=== PATIENT | female | born 1990 | race Caucasian/White ===

== ENCOUNTER 2023-05-30 21:33 | Observation (INO) | payer BC, SELFPAY ==
--- NOTE | ~2023-05-30 | XR_ITS ---
EXAMINATION: XR chest 1V portable DATE: 05/31/2023 00:26 INDICATION: Mild THC abuse. TECHNIQUE: A single frontal view of the chest was obtained. COMPARISON: None. FINDINGS: A calcified left lung nodule and calcified left hilar lymph nodes are consistent with old g ranulomatous disease. There is no pneumonia, pleural effusion, or pneumothorax. The heart size is nor mal. IMPRESSION: 1. No acute cardiopulmonary disease. Reviewed, dictated and finalized at location A.
[2023-05-30 21:24] VITALS: BP 149/64; PULSE 172; RESP 21; TEMP 37.2; O2SAT 100
[2023-05-30 22:05] VITALS: BP 161/95; PULSE 158; RESP 21; O2SAT 96
[2023-05-30] MEDS: SODIUM CHLORIDE 0.9% IV 1,000 ML 999 ML IV CONT (22:21)
[2023-05-30] MEDS: MIDAZOLAM HCL (*CRX) 2 MG/2 ML VIAL 5 MG IV PUSH (22:21)
[2023-05-30 22:24] LABS: Basophils Absolute Auto 0.1 K/mm3 (0.0-0.1); Basophils Percent Auto 0.5 % (0.2-1.2); Eosinophils Absolute Auto 0.3 K/mm3 (0-0.3); Eosinophils Percent Auto 1.7 % (0-4.4); Hematocrit 34.9 % (37.0-47.0); Hemoglobin 11.7 g/dL (12.0-15.0); Immature Granulocyte Absolute 0.07 K/mm3 (0.00-0.031); Immature Granulocyte Percent A 0.4 % (0-0.5); Lymphocytes Absolute Auto 5.38 K/mm3 (0.9-3.2); Lymphocytes Percent Auto 31.5 % (18.3-44.2); Mean Corpuscular HGB Conc 33.5 g/dl (32-36); Mean Corpuscular Hemoglobin 30.5 pg (26-34); Mean Corpuscular Volume 90.9 fl (80-100); Mean Platelet Volume 9.6 fl (7.4-10.4); Monocytes Absolute Auto 0.8 K/mm3 (0.1-0.6); Monocytes Percent Auto 4.9 % (2.6-8.5); Neutrophils Absolute Auto 10.4 K/mm3 (1.3-6.7); Platelet Count Result 388 k/mm3 (150-375); Red Blood Count 3.84 M/mm3 (4.2-5.4); Red Cell Distribution Width 12.5 % (11.5-14.5); White Blood Count 17.1 K/mm3 (4.5-10.0)
--- NOTE | 2023-05-30 22:38 | ED.GENADULT ---
HPI - General Adult General Chief complaint: Arrhythmia/Palpitations Stated complaint: svt Time Seen by Provider: 05/30/23 22:24 History of Present Illness HPI narrative: This is a 33-year-old female with a history of anxiety THC use presenting for palpitations. Patient says she had a THC edible at 6:30 p.m. At 8:30 pm she said she started feel like heart was racing. She also has significant anxiety. Patient denies chest pain difficulty breathing abdominal pain, dizziness or loss of consciousness. EMS was called and she received 6 and 12 of adenosine en route with no affect. Related Data Allergies Allergy/AdvReac Type Severity Reaction Status Date / Time No Known Allergies Allergy Verified 05/30/23 22:06 Exam Narrative: APPEARANCE: Patient is very anxious appearing Head: atraumatic. EYES: EOMI, NOSE: Atraumatic NECK: Trachea midline RESPIRATORY: No increased rate of breathing, CTAB CARDIOVASCULAR: Tachycardic, no peripheral ABDOMINAL: Non-distended MUSCULOSKELETAl: No obvious deformities NEURO: Alert. Moving 4/4 extremities SKIN:: Warm, dry. Normal color PSYCHIATRIC: anxious Course Vital Signs Vital signs: Vital Signs Temperature 98.9 F 05/30/23 21:24 Pulse Rate 172 H 05/30/23 21:24 Respiratory Rate 21 H 05/30/23 21:24 Blood Pressure 149/64 H 05/30/23 21:24 Pulse Oximetry 100 05/30/23 21:24 Oxygen Delivery Room Air 05/30/23 21:24 Temperature 98.9 F 05/30/23 21:24 Pulse Rate 118 H 05/31/23 02:06 Respiratory Rate 15 05/31/23 02:06 Blood Pressure 116/67 05/31/23 02:06 Pulse Oximetry 96 05/31/23 02:06 Oxygen Delivery Room Air 05/30/23 21:24 Medical Decision Making [facility] Narrative Medical decision making narrative: -Course: 33-year-old female presenting with palpitations and anxiety after THC use. Given 5 mg of Versed with no change in heart rate. Given 2 L of fluid with no change in heart rate. Given adenosine 6mg and 12mg with no effect. Then given 10 mg of diltiazem x2 and started on drip are rate improved to 117. Admitted the hospital for refractory SVT. -DDX includes but is not limited to: Anxiety, SVT, substance use disorder -Co-morbidities complicating care: Anxiety, THC overdose -Social determinants of health: Patient works as a nurse, Daily THC use -Independent interpretation of studies: White count 17.1. No signs of infection Metabolic panel unremarkable. Troponin undetectable. BNP 97. TSH normal UA unremarkable. UDS positive for benzos and cannabinoids. Viral swabs negative Chest x-ray unremarkable Independent EKG interpretation: Rhythm SVT, Rate [169], Grannis -[normal], MT -[normal], QRS [narrow], QTC [normal], T waves -[negative for concerning inversions], ST Segments - [Negative for concerning elevations] Final interpretations: SVT Independent EKG interpretation: Rhythm [sinus], Rate [115], Grannis -[normal], MT -[normal], QRS [narrow], QTC [normal], T waves -[negative for concerning inversions], ST Segments - [Negative for concerning elevations] Final interpretations: Sinus tach -Discussion of Management/Consultants:Vahid Hospitalist -Interventions: 2 L normal saline, 5 mg Versed, 2 g magnesium, adenosine 6 mg -> 12 mg diltiazem 10 mg x 2, diltiazem drip -Shared decision making / Disposition: Admitted Vital Signs Vital Signs: Vital Signs Temperature 98.9 F 05/30/23 21:24 Pulse Rate 172 H 05/30/23 21:24 Respiratory Rate 21 H 05/30/23 21:24 Blood Pressure 149/64 H 05/30/23 21:24 Pulse Oximetry 100 05/30/23 21:24 Oxygen Delivery Room Air 05/30/23 21:24 Temperature 98.9 F 05/30/23 21:24 Pulse Rate 118 H 05/31/23 02:06 Respiratory Rate 15 05/31/23 02:06 Blood Pressure 116/67 05/31/23 02:06 Pulse Oximetry 96 05/31/23 02:06 Oxygen Delivery Room Air 05/30/23 21:24 Lab Data 05/30/23 22:00 05/30/23 23:28 Labs: Lab Results 05/30/23 05/30/23 05/30/23 Range/Unit
[2023-05-30] MEDS: dilTIAZem HCl INJ 25 MG/5 ML VIAL 10 MG IV PUSH ×2 (22:41→22:54)
[2023-05-30 22:43] VITALS: BP 168/84; PULSE 162; RESP 15; O2SAT 99
[2023-05-30] MEDS: MAGNESIUM SULF 2 GM/WATER 50ML 2 GM/50 ML BAG IVPB (22:49)
[2023-05-30 23:17] VITALS: BP 130/64; PULSE 147
[2023-05-30] MEDS: dilTIAZem 100 MG/100 ML 100 MG/100 ML BAG IV CONT (23:17)
[2023-05-30 23:54] LABS: Amphetamine Screen Urine Negative (Negative); Barbiturate Screen Urine Negative (Negative); Benzodiazepines Screen Urine Positive (Negative); Cannabinoid Screen Urine Positive (Negative); Cocaine Screen Urine Negative (Negative); Methadone Screen Urine Negative (Negative); Opiate Screen Urine Negative (Negative); Phencyclidine Screen Urine Negative (Negative)
[2023-05-31] VITALS (22 sets, daily range): BP systolic 115–142; BP diastolic 52–78; PULSE 74–144; RESP 15–21; TEMP 36.3–37.2; O2SAT 95–98
--- NOTE | 2023-05-31 | ECHO_ITS ---
Patient Info Name: Barbara Argueta Age: 33 years : 1990 Gender: Female Ht: 62 in Wt: 222 lbs BSA: 2.15 m2 HR: 78 bpm BP: 142 / 72 mmHg Heart Rhythm: Sinus Rhythm Technical Quality: Fair Exam Date: 05/31/2023 11:49 AM Exam Location: Echo Lab Exam Room: [facility] Patient Status: Inpatient Admit Date: 05/31/2023 Staff Ordering Physician: Garrick Umanzor MD Expeller Worker: Micaela Golden RDCS Attending Provider: Wero Hernandez MD Referring Physician: Erna MIRAMONTES; Exam Type: CA echo doppler color flow Study Info Indications - TACHYCARDIA Complete two-dimensional, color flow and Doppler transthoracic echocardiogram is performed. Summary 1. Complete two-dimensional, color flow and Doppler transthoracic echocardiogram is performed. 2. Left ventricular chamber dimension is normal. 3. Left ventricular systolic function is normal, estimated at 65-70%. 4. There is no increased left ventricular wall thickness. 5. The left ventricular diastolic function is normal. 6. There is no aortic valve stenosis. 7. There is no aortic valve regurgitation. 8. There is trace mitral valve regurgitation. 9. The mitral valve has normal leaflets. 10. There is mild tricuspid valve regurgitation. 11. No pulmonary hypertension, estimated pulmonary arterial systolic pressure is 26 mmHg. Left Ventricle Left ventricular chamber dimension is normal. Left ventricular systolic function is normal, estimated at 65-70%. There is no increased left ventricular wall thickness. The left ventricular diastolic function is normal. Right Ventricle Right ventricular chamber dimension is normal. Right ventricular systolic function is normal. Left Atria Left atrial chamber dimension is upper limits of normal. Right Atria Right atrial chamber dimension is upper limits of normal. Aortic Valve The aortic valve is trileaflet. There is no aortic valve stenosis. There is no aortic valve regurgitation. Pulmonic Valve The pulmonic valve is not well visualized. There is trace pulmonic regurgitation. Mitral Valve The mitral valve has normal leaflets. There is trace mitral valve regurgitation. Tricuspid Valve The tricuspid valve leaflets are normal. There is mild tricuspid valve regurgitation. No pulmonary hypertension, estimated pulmonary arterial systolic pressure is 26 mmHg. Pericardium/Pleural The pericardium appears normal. There is no pericardial effusion. Inferior Vena Cava Normal inferior vena cava with >50% collapse upon inspiration consistent with normal right atrial pressure, 5 mmHg. Aorta The aortic root size at the sinus of Valsalva is normal. Left Ventricular Outflow Tract Name Value Normal LVOT 2D LVOT Diameter 2.0 cm LVOT Doppler LVOT Peak Gradient 5 mmHg LVOT Mean Gradient 3 mmHg LVOT VTI 23 cm LVOT VTI/AV VTI Ratio 0.9 LVOT Stroke Volume 73 ml LVOT CO 16.5 l/min LVOT CI 7.7 l/min/m2 Pulmonic Valve
[2023-05-31 00:08] LABS: Alanine Aminotransferase 22 U/L (6-35); Alkaline Phosphatase 65 U/L (38-126); Anion Gap 8 mmol/L (4-12); Aspartate Amino Transferase 23 U/L (14-36); Bilirubin,Total 0.3 mg/dL (0.2-1.3); Blood Urea Nitrogen 16 mg/dL (7-17); Calcium 8.5 mg/dL (8.4-10.2); Carbon Dioxide 21 mmol/L (22-30); Chloride 110 mmol/L (98-107); Estimated CRCL calculation 93 ml/min; Estimated Glomerular Filt Rate > 60; Glucose 147 mg/dL (65-110); Magnesium 2.3 mg/dL (1.6-2.3); Sodium 139 mmol/L (137-145)
[2023-05-31 00:37] LABS: Influenza A QL RT-PCR Negative (Negative); Influenza B QL RT-PCR Negative (Negative); RSV RNA, RT-PCR Negative (Negative); SARS-CoV-2 RNA PCR Negative (Negative)
[2023-05-31 00:45] LABS: Ethanol < 10 mg/dL (<10)
[2023-05-31 01:06] LABS: NT Pro B Type Natriuretic Pept 97 pg/mL (19.9-100); Troponin I < 0.012 ng/mL (0.000-0.034)
[2023-05-31 01:16] LABS: Appearance Urine Clear (Clear); Bacteria Urine 1+ /hpf; Bilirubin Urine Negative (Negative); Blood Urine Trace (Negative); Color Urine Yellow (Yellow); Glucose Urine UA Negative (Negative); Ketones Urine Negative (Negative); Leukocyte Esterase Ur Negative LEU/UL (Negative); Nitrate Urine Negative (Negative); Non Pathogenic Casts 0-2; Protein Urine Negative (Negative); RBC Urine 0-2 /hpf (0-2); Specific Grav Ur 1.009 (1.001-1.035); Squamous Epithelial Cell Urine None Seen /hpf (Few); Urobilinogen Urine 0.2 mg/dL (<2.0); WBC Urine 0-5 /hpf (0-3)
[2023-05-31 01:37] LABS: Add Urine Microscopic? YES
--- NOTE | 2023-05-31 02:15 | ECG_ITS ---
Measurements Intervals [place] Rate: 169 P: [place]: 0 QRS: 51 QRSD: 91 T: 13 QT: 290 QTc: 487 Interpretive Statements SUPRAVENTRICULAR TACHYCARDIA CANNOT EXCLUDE ATYPICAL ATRIAL FLUTTER MODERATE ST DEPRESSION [0.05+ mV ST DEPRESSION] ABNORMAL ECG NO PREVIOUS ECG AVAILABLE FOR COMPARISON Electronically Signed On 05-31-2023 12:52:24 CDT by Khari Short M.D.
--- NOTE | 2023-05-31 02:18 | ECG_ITS ---
Measurements Intervals [place] Rate: 115 P: 24 WI: 192 QRS: 15 QRSD: 105 T: 1 QT: 312 QTc: 433 Interpretive Statements SINUS TACHYCARDIA ABNORMAL RHYTHM ECG COMPARED TO ECG 05/30/2023 21:28:56 SINUS TACHYCARDIA REPLACES SVT Electronically Signed On 05-31-2023 13:03:12 CDT by Khari Short M.D.
[2023-05-31] MEDS: dilTIAZem 100 MG/100 ML 100 MG/100 ML BAG 15 MG IV CONT ×2 (03:29→04:38)
--- NOTE | 2023-05-31 04:25 | ADMGEN ---
This patient, Barbara Argueta, was admitted to IMU Room 200-01. Patient/family oriented to hospital policies and general routines including ID bracelet, bed and alarms, visiting hours, pain management, procedures, bathroom and other care routines, personal items, smoking policy, room service/diet, and visiting hours. Information on how to activate the Rapid Response Team has been discussed. Patient/Family are encouraged to report perceived risks to care and to ask questions if they do not understand what they are told or what they should do.
--- NOTE | 2023-05-31 04:25 | PC.NURSE ---
Dr Hernandez aware titrating order for cardizem removed and 15mg continuous dose ordered.
[2023-05-31 05:12] LABS: Troponin I < 0.012 ng/mL (0.000-0.034)
--- NOTE | 2023-05-31 06:05 | PM.IMHP ---
H&P: HPI History of Present Illness Date/Time: 05/31/23 06:05 Chief Complaint: 1. Palpitations 2. Anxiety Narrative: Barbara Argueta is a 33 yo F with a mHx significant for anxiety, obesity and marijuana dependence. Though she had been taking the same dose of gummies in the past, she states that a few hours after her last dose of THC gummies at 6pm in addition to some alcohol with dinner, she developed palpitations, dizziness, malaise and mental cloudiness. With no known modifying factors, it was associated with anxiety and poor performance of ADLs with insomnia. She denies fevers, chills, nausea, vomiting, cough, focal or generalized pain. 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 At the bedside, she is anxious looking but cooperative; her brother (A supervisor color making) and . The former refused to allow commencement of oral BB Rx; I think we should hold all oral medications till Cardiology evaluates; we'll prefer a special assets officer from [facility] Work-up findings; ECG: Sinus tachycardia WBC 17 Hb 11 PLT 388 Na 139 K 4 Cl 110 HCO3 21 BUN 16 Cr 0.8 GFR 93 Troponin 0.012 >> <0.012 UA: +bacteria UDS: +Cannabinoids; +Benzodiazepines Influenza A/B, RSV, SARS-COV-2: Negative CXR: Unremarkable Barbara Argueta will be admitted and evaluated for tachyarrhythmias with palipitations. Review of Systems Constitutional: Constitutional: Denies difficulty sleeping, Denies lethargy and Denies night sweats Eyes: Eyes: Reports no additional eye complaints ENT: Reports system reviewed and no additional complaints, except as documented Cardiovascular: Cardiovascular: Reports lightheadedness and Reports palpitations Respiratory: Respiratory: Reports no additional respiratory complaints Musculoskeletal: Musculoskeletal: Reports no additional musculoskeletal complaints, Denies back pain, Denies myalgias and Denies arthralgias Neurologic: Denies confusion, Denies headache(s) and Denies numbness Psychiatric: Psychiatric: Reports no additional psychiatric complaints, Reports anxiety, Denies depression, Denies homicidal ideation and Denies suicidal ideation [facility] Family History Family History (Updated 05/31/23 @ 03:54 by Mackenzie Ramsey RN) Mother Hypertension Crohn's disease Adrenal insufficiency Grandparent Kidney failure Social History Social History Smoking packs per day: 0.1 Smoking cigarettes per day: 2.0 Years smoked: 4 Smoking pack-years: 0.40 Smoking status: Former smoker Tobacco type: cigarettes Second hand tobacco smoke exposure: Yes Alcohol intake: current Drinks per week: 5 Substance use: current Substance use type: marijuana Last use: 05/30/23 Do You Feel Safe in your Home?: Yes Lack of Transportation: No Lack of Food: Never True Current Housing: I Have Housing Concerned About Future Housing: No Difficulty Paying Gas/Electric Bills: No Difficulty Paying for Meds: No Currently Unemployed: No Education: Bachelor's Degree Difficulty w/ Childcare or Family Care: No Spiritual care concerns: No Meds Home Medications and Allergies Home Medications Medication Instructions Recorded Confirmed Type No Home Medications 05/31/23 05/31/23 History Allergies Allergy/AdvReac Type Severity Reaction Status Date / Time No Known Allergies Allergy Verified 05/30/23 22:06 Vital Signs Vital Signs - 24 hr 05/30/23 21:24 05/30/23 22:05 05/30/23 22:43 Temperature 98.9 F Pulse Rate 172 H 158 H 162 H Respiratory Rate 21 H 21 H 15 Blood Pressure 149/64 H 161/95 H 168/84 H Pulse Oximetry 100 96 99 Oxygen Delivery Room Air 05/30/23 23:17 05/31/23 00:20 05/31/23 01:10 Temperature Pulse Rate 147 H 144 H 131 H Respiratory Rate Blood Pressure 130/64 128/77 133/78 Pulse Oximetry Oxygen Delivery 05/31/23 01:11 05/31/23 01:47 05/31/23 02:06 Temperature Pu
[2023-05-31 07:43] LABS: Basophils Absolute Auto 0.1 K/mm3 (0.0-0.1); Basophils Percent Auto 0.4 % (0.2-1.2); Eosinophils Percent Auto 0.1 % (0-4.4); Hemoglobin 11.8 g/dL (12.0-15.0); Immature Granulocyte Absolute 0.06 K/mm3 (0.00-0.031); Immature Granulocyte Percent A 0.4 % (0-0.5); Lymphocytes Absolute Auto 2.96 K/mm3 (0.9-3.2); Lymphocytes Percent Auto 20.7 % (18.3-44.2); Mean Corpuscular HGB Conc 32.8 g/dl (32-36); Mean Corpuscular Hemoglobin 30.2 pg (26-34); Mean Corpuscular Volume 92.1 fl (80-100); Mean Platelet Volume 9.4 fl (7.4-10.4); Monocytes Absolute Auto 0.6 K/mm3 (0.1-0.6); Neutrophils Absolute Auto 10.6 K/mm3 (1.3-6.7); Neutrophils Percent Auto 74.4 % (45.5-73.1); Platelet Count Result 375 k/mm3 (150-375); Red Blood Count 3.91 M/mm3 (4.2-5.4); Red Cell Distribution Width 12.7 % (11.5-14.5); White Blood Count 14.3 K/mm3 (4.5-10.0)
--- NOTE | 2023-05-31 08:08 | PC.NURSE ---
0735-patient refused to have diltiazem drip discontinued and start PO metoprolol until seen by cardiology. Dr. Condon and Dr. Umanzor notified.
[2023-05-31 08:17] LABS: Anion Gap 9 mmol/L (4-12); Blood Urea Nitrogen 15 mg/dL (7-17); Calcium 8.9 mg/dL (8.4-10.2); Carbon Dioxide 22 mmol/L (22-30); Chloride 108 mmol/L (98-107); Estimated CRCL calculation 107 ml/min; Estimated Glomerular Filt Rate > 60; Glucose 101 mg/dL (65-110); Magnesium 2.7 mg/dL (1.6-2.3); Potassium 3.8 mmol/L (3.4-5.0); Sodium 139 mmol/L (137-145)
--- NOTE | 2023-05-31 08:51 | PM.CNCAR ---
Assessment and Plan Assessment and plan (1) Inappropriate sinus tachycardia: Code(s): I47.11 - Inappropriate sinus tachycardia, so stated Status: Acute Assessment and Plan: After extensive review telemetry available ECGs, most reasonable explanation for her narrow complex tachycardia is consistent with inappropriate sinus tachycardia. There is no other clear evidence for AVRT/AVNRT, short or long RP tachycardia, atrial fibrillation and/or atrial flutter thus far. As documented by available telemetry and vital signs she had a gradual slowing of her heart rate initially in the 160-170 with therapy consistent with a sinus mechanism as opposed to clear sustained or terminated tachyarrhythmia. We discussed extensively the importance underlying secondary, treatable identifiable and reversible causes for sinus tachycardia. There is no near-syncope or syncope. Explained our preference would not be directly treat her for sinus tachycardia however at this time there is no clear explanation. As such after reviewing various options we have agreed to discontinue diltiazem infusion and initiate oral beta-myah therapy with metoprolol tartrate 25 mg twice daily. We discussed transition to long-acting Toprol succinate as tolerated. This would be a short-term plan to observe tolerance and to get her off IV infusion. Continue telemetry. Outpatient classroom monitor would be advised. 2D echo cardiogram to assess LV size/function, valve pathology pulmonary pressures, and chamber size. Patient, her , and her brother all verbalized understanding and agreed with plan of care. They were very appreciative of our time and discussion in this regard. She is hemodynamically stable with normal renal function, electrolytes. Viral screen was negative. Urine drug screen was positive for cannabinoids as expected and benzodiazepine yet she received Versed in the emergency department. TSH is normal. She is minimally anemic but not to the degree which would have any clinical association with presentation. Most likely clinical circumstances is marijuana excessive or unknown contamination in conjunction with alcohol intake, possible associated with anxiety yet the latter does not appear to be the primary explanation. I have advised her to remain hydrated and monitor her heart rate blood pressure closely and report any concerns. No clinical evidence of symptoms to support postural orthostatic tachycardia syndrome. We will observe her response to oral AV colten blocking agent with discontinuation of diltiazem. Outpatient follow-up within the next 4-6 weeks. Disposition per hospitalist service after response to therapy is known. Troponin negative, no symptoms suggestive of angina. We would like to observe her heart rate response with ambulation off diltiazem infusion. I spent 83 minutes in the care of this patient including time at bedside with discussions with patient and family at bedside, physical examination, chart review, medical decision making, discussions with Hospitalist Service, and documentation. (2) Marijuana intoxication: Code(s): F12.929 - Cannabis use, unspecified with intoxication, unspecified Status: Acute Assessment and Plan: Unclear for marijuana use was a clinically significant contribution yet I have advised her to completely avoid the time being in addition to alcohol. She verbalized understanding and agreed. (3) Morbid obesity with BMI of 40.0-44.9, adult: Code(s): E66.01 - Morbid (severe) obesity due to excess calories; Z68.41 - Body mass index [BMI] 40.0-44.9, adult Status: Acute Assessment and Plan: Lifestyle modification, exercise, weight loss. (4) Palpitations: Code(s): R00.2 - Palpitations Status: Acute Assessment and Plan: As above, secondary to inappropriate sinus tachycardia but without clear evidence per her description of clear onset and abrupt offset of palpitations
[2023-05-31] MEDS: ENOXAPARIN 40 MG/0.4 ML SYRINGE SUB-Q (10:05)
[2023-05-31] MEDS: METOPROLOL TARTRATE 25 MG TABLET PO (10:53)
--- NOTE | 2023-05-31 17:09 | PM.DS ---
DS: Admitting Diagnosis Discharge Date 05/31/23 Admitting Diagnosis Palpitations DS: Discharge Diagnosis Discharge Diagnosis (1) Inappropriate sinus tachycardia: Code(s): I47.11 - Inappropriate sinus tachycardia, so stated Status: Acute (2) Anxiety: Code(s): F41.9 - Anxiety disorder, unspecified Status: Acute (3) Leukocytosis: Code(s): D72.829 - Elevated white blood cell count, unspecified Status: Acute (4) Marijuana use: Code(s): F12.90 - Cannabis use, unspecified, uncomplicated Status: Acute (5) Morbid obesity with BMI of 40.0-44.9, adult: Code(s): E66.01 - Morbid (severe) obesity due to excess calories; Z68.41 - Body mass index [BMI] 40.0-44.9, adult Status: Acute DS: Summary Hospital Course Reason for hospitalization: 33yo female with anxiety here for palpitations. Please see H&P for details. Hospital Course: Patient had alcohol marijuana gummy prior to admission. She noted her HR up to 170 and EMS called. Possible SVT so received adenosine per EMS with no effect.?In the ED, IV fluids x 2 L and started on dltiazem IV. Also received Versed. Her HR slowly trended down but did not convert suddenly to NSR. EKG was read as possible AFlutter. Echo was normal. She was switched from diltiazem IV to metoprolol with good results. Cardiology consulted and appreciate their input. WBC was elevated to 17K but felt to be stress response. No left shift. UA clear. UPT negative. CXR clear. Repeat WBC trending down on no abx. TSH normal. Troponin negative x2. Glucose 147 but repeat normal. UDS positive with cannabinoids and benzodiazepines (benzos related to Versed given in ED). Her heart rate remained stable on metoprolol. She overall did well and was able to be discharged on 05/31/23. Status at Discharge Cognitive/behavioral status at discharge: stable Time Spent with Patient Time attestation: Total time spent providing and/or coordinating discharge services: 35 minutes Time spent: Greater than 30 minutes Exam Narrative: AF 97.9 139/70 81 16 97% ra Gen - NARD Chest - CTA bilaterally, nml RR CV - RRR S1/S2. Tele showing sinus tachycardia Abd - Soft, NT/ND, Positive BS Ext - No pedal edema Psych - Nml mood and affect Skin - Warm and dry DS: Data Data Completed and Pending Labs on day of discharge: Labs from last 24 hours 05/31/23 05/31/23 05/31/23 04:21 04:18 00:14 WBC 14.3 H RBC 3.91 L Hgb 11.8 L Hct 36.0 L MCV 92.1 MCH 30.2 MCHC 32.8 RDW 12.7 Plt Count 375 MPV 9.4 Immature Gran % (Auto) 0.4 Neut % (Auto) 74.4 H Lymph % (Auto) 20.7 [place] % (Auto) 4.0 Eos % (Auto) 0.1 Baso % (Auto) 0.4 Lymph # (Auto) 2.96 [place] # (Auto) 0.6 Eos # (Auto) 0.0 Baso # (Auto) 0.1 Abs Immat Gran (auto) 0.06 H Absolute Neuts (auto) 10.6 H Absolute Nucleated RBC 0.000 Nucleated RBC % 0.0 Sodium 139 Potassium 3.8 Chloride 108 H Carbon Dioxide 22 Anion Gap 9 BUN 15 Creatinine 0.70 Estim Creat Clear Calc 107 Estimated GFR > 60 Glucose 101 Calcium 8.9 Magnesium 2.7 H Total Bilirubin AST ALT Alkaline Phosphatase Troponin I < 0.012 NT-Pro-B Natriuret Pep Total Protein Albumin TSH (Reflex) Urine Color Urine Appearance Urine pH Ur Specific [place] Urine Protein Urine Glucose (UA) Urine Ketones Ur Blood (Man) Urine Nitrate Urine Bilirubin Urine Urobilinogen Leukocyte Esterase Rfl Urine RBC Urine WBC Ur Squamous Epith Cells Urine Bacteria Urine Casts Urine Opiates Screen Urine Methadone Screen Ur Barbiturates Screen Ur Phencyclidine Scrn Ur Amphetamine Screen U Benzodiazepines Scrn Urine Cocaine Screen U Cannabinoids Screen Ethyl Alcohol < 10 Influenza A (RT-PCR) Influenza B (RT-PCR) RSV (RT-PCR) SARS-CoV-2 RNA
== END 2023-05-31 17:55 | disposition home or self-care (01) ==
LOC: ANHED 05-31 01:42 → ANHIMU 05-31 02:46
PROVIDERS: Internal Medicine; Admitting Provider Internal Medicine; Emergency Provider Emergency Medicine; PCP Internal Medicine; Visit Provider Internal Medicine
DX: I47.11 Inappropriate sinus tachycardia, so stated (principal); F41.9 Anxiety disorder, unspecified; D72.829 Elevated white blood cell count, unspecified; F12.929 Cannabis use, unspecified with intoxication, unspecified; E66.01 Morbid (severe) obesity due to excess calories; Z68.41 Body mass index [BMI] 40.0-44.9, adult; Z87.891 Personal history of nicotine dependence; Z20.822 Contact with and (suspected) exposure to COVID-19
CPT/HCPCS: 36415; 71045; 80048; 80053; 80307; 81001; 81025; 83735; 83880; 84443; 84484; 85025; 87637; 93005; 93306; 96361; 96365; 96366; 96367; 96372; 96375; 96376; 99285; A9270; G0378; J1650; J2250; J3475; J7030